=== PATIENT | female | born 1965 | race African-American/Black ===

== ENCOUNTER 2022-05-24 22:12 | Emergency (ER) | payer SELFPAY ==
[~2022-05-24] VITALS: Ht 162.6 cm; Wt 95.0 kg
[2022-05-24 22:14] VITALS: BP 127/89
== END 2022-05-24 23:33 | disposition left against medical advice (07) ==
LOC: ER 22:12
DX: Z53.21 Procedure and treatment not carried out due to patient leaving prior to being seen by health care provider (principal)
CPT/HCPCS: 99281